=== PATIENT | female | born 1935 | race Caucasian/White ===

== ENCOUNTER 2019-06-19 08:49 | Outpatient (CLI) | payer MEDICARE, OTHER ==
--- NOTE | 2019-06-19 09:03 | RAD ---
EXAM: Chest PA and lateral: HISTORY: Dyspnea COMPARISON: None FINDINGS: Heart: Normal cardiac silhouette Aorta: Unremarkable Pulmonary vessels: Normal Costophrenic angles: Atherosclerosis of the aortic knob Lungs: No consolidation or masses. Pneumothorax: No pneumothorax Osseous structures: No osseous abnormalities IMPRESSION: No acute cardiopulmonary process.
== END 2019-06-19 08:50 | disposition home or self-care (01) ==
LOC: RAD 08:49
PROVIDERS: ATTEND Internal Medicine Critical Care Medicine
DX: R06.00 Dyspnea, unspecified (principal)
CPT/HCPCS: 71046

== ENCOUNTER 2019-07-17 10:50 | Outpatient (CLI) | payer MEDICARE, OTHER ==
--- NOTE | 2019-07-17 11:34 | CT ---
CT CHEST WITHOUT CONTRAST CLINICAL INDICATION: Pulmonary nodule (RA nodules). COMPARISON: None FINDINGS: Aorta: Vascular calcifications are seen in the thoracic aorta and involving the origin of the great v essels. Vascular calcifications are also seen in the coronary arteries. Lungs: Scattered peripheral interstitial densities are seen throughout the lungs bilaterally likely r eflective of mild chronic lung changes. Mild prominence of the bronchioles bilaterally with mild bronchiectasis seen in the medial aspect of the right middle lobe with adjacent parenchymal density. Approximately 5 mm noncalcified pulmonary nodule is seen in the right lower lobe (image 101, series 3 ) with a small 4 millimeter pulmonary nodule in the lateral aspect right middle lobe (image 99, series 3). Tiny less than 4 mm pleural-based nodular density is seen in the lateral aspect of the beau gula. No additional pulmonary nodule or mass is seen. No pleural effusion is identified. Mediastinum: Lack of intravenous contrast limits evaluation for lymphadenopathy, but no definite enla rged lymph nodes are seen. Thyroid gland: Grossly normal nonenhanced CT appearance. Osseous structures: No suspicious lytic or sclerotic osseous lesions are identified. Chest wall: No abnormality visualized. Upper abdomen: There is a small hiatal hernia. There is diminished attenuation of portions of the liver suggesting fatty infiltration. Vascular calc ifications are seen in the abdominal aorta. IMPRESSION: 1. Small less than 6 mm pulmonary nodules in the right lower and right middle lobes as described abov e. Follow-up CT scan thorax in 12 months is recommended. 2. Mild chronic interstitial lung changes including area of bronchiectasis and chronic lung changes i nvolving the medial aspect right middle lobe. 3. Small hiatal hernia. 4. Fatty infiltration of the liver. 5. Vascular calcifications.
== END 2019-07-17 10:51 | disposition home or self-care (01) ==
LOC: BICCT 10:50
PROVIDERS: ATTEND Internal Medicine Critical Care Medicine
DX: R91.8 Other nonspecific abnormal finding of lung field (principal); J47.9 Bronchiectasis, uncomplicated; K44.9 Diaphragmatic hernia without obstruction or gangrene; K76.0 Fatty (change of) liver, not elsewhere classified; I70.8 Atherosclerosis of other arteries
CPT/HCPCS: 71250

== ENCOUNTER 2020-07-28 14:29 | Outpatient (CLI) | payer MEDICARE, OTHER ==
--- NOTE | 2020-07-28 15:42 | CT ---
Exam: Chest CT without contrast COMPARISON: 07/17/2019 HISTORY: Follow-up pulmonary nodules. FINDINGS: Lower neck and axilla: No mass or lymphadenopathy Mediastinum: Limited evaluation by the lack of IV contrast. No mass, lymphadenopathy or hematoma Normal heart size. There are coronary calcifications Aorta has a overall normal caliber. Scattered atherosclerosis Subdiaphragmatic structures demonstrate areas of fatty infiltration and fatty sparing with regards to the hepatic parenchyma There are no lytic or blastic lesions in the osseous structures. Trachea and central bronchi are patent No pneumothorax or pleural effusion Dependent atelectatic changes in the lung parenchyma. Stable scar atelectasis in the lingula and midd le lobe. Right lung nodules: Stable 0.4 cm nodule in the middle lobe Stable 0.5 cm solid nodule in the right lower lobe. Left lung nodules: There are no suspicious nodules in the left lung IMPRESSION: Stable 0.5 cm solid nodule in the right lower lobe and stable 0.4 cm solid nodule in the middle lobe. Transcribed Date/Time: 07/28/2020 4:51 PM
== END 2020-07-28 14:30 | disposition home or self-care (01) ==
LOC: BICCT 14:29
PROVIDERS: ATTEND Internal Medicine Critical Care Medicine
DX: R91.8 Other nonspecific abnormal finding of lung field (principal)
CPT/HCPCS: 71250

== ENCOUNTER 2021-05-28 12:06 | Emergency (ER) | payer MEDICARE, OTHER ==
[2021-05-28] MEDS ORDERED: Bacitracin 1 PK ONE (13:11)
[2021-05-28] MEDS ORDERED: Boostrix 0.5 ML (Tdap) VIAL ONE (13:11)
== END 2021-05-28 15:15 | disposition home or self-care (01) ==
LOC: ERS 12:06
DX: S01.81XA Laceration without foreign body of other part of head, initial encounter (principal); S63.92XA Sprain of unspecified part of left wrist and hand, initial encounter; Z23 Encounter for immunization; W01.0XXA Fall on same level from slipping, tripping and stumbling without subsequent striking against object, initial encounter; M19.90 Unspecified osteoarthritis, unspecified site; M06.9 Rheumatoid arthritis, unspecified
CPT/HCPCS: 70450; 90471; 90715

== ENCOUNTER 2021-07-27 09:50 | Outpatient (CLI) | payer MEDICARE, OTHER | END 2021-07-27 09:51 | disposition home or self-care (01) | LOC: CT 09:50 | PROVIDERS: ATTEND Internal Medicine Critical Care Medicine | DX: R91.8 Other nonspecific abnormal finding of lung field (principal) | CPT/HCPCS: 71250 ==

== ENCOUNTER 2022-02-26 15:15 | Emergency (ER) | payer MEDICARE, OTHER | END 2022-02-26 17:18 | disposition home or self-care (01) | LOC: ERS 15:15 | DX: S00.01XA Abrasion of scalp, initial encounter (principal); W19.XXXA Unspecified fall, initial encounter | CPT/HCPCS: 70450; 72125 ==

== ENCOUNTER 2023-02-06 13:46 | Inpatient (IN) | payer MEDICARE, OTHER ==
[2023-02-06] MEDS ORDERED: Morphine 4 MG/ML VIAL ONE ×2 (14:54→17:16)
[2023-02-06] MEDS ORDERED: Ondansetron ODT 4 MG TAB PO PRN (17:31)
[2023-02-06] MEDS ORDERED: Ondansetron PF 4 MG/2 ML Vial IVP PRN (17:31)
[2023-02-06] MEDS ORDERED: Morphine 2 MG/ML VIAL SLOW IVP PRN (17:31)
[2023-02-06] MEDS ORDERED: traMADol HCl 50 MG TAB PO PRN (17:31)
[2023-02-06] MEDS ORDERED: hydrALAZINE 20 MG/ML VIAL SLOW IVP PRN (17:31)
[2023-02-06] MEDS ORDERED: TETANUS, DIPHTHERIA TOX,ADULT (TDVAX) 0.5 ML VIAL IM ONE (17:31)
[2023-02-06] MEDS ORDERED: Ketorolac Tromethamine 30 MG/ML VIAL IVP SCH (20:00)
[2023-02-06] MEDS ORDERED: Acetaminophen 500 MG TAB PO SCH (20:00)
[2023-02-06] MEDS: Gabapentin 100 MG CAP PO SCH (21:43)
[2023-02-06] MEDS: Famotidine 20 MG TAB PO SCH (21:45)
[2023-02-06 23:55] VITALS: BMI 38.4
[2023-02-07 06:35] LABS: #Eosinphils 0.2 thou/uL (0.0-0.7); #Monocytes 0.4 thou/uL (0.11-0.59); #Neutrophils 4.2 thou/uL (1.40-6.50); %Basophils 0.3 % (0.0-1.0); %Eosinophils 2.5 % (0.0-10.0); %Lymphocytes 23.9 % (21.0-51.0); %Monocytes 6.4 % (0.0-10.0); %Neutrophils 66.4 % (42.0-75.0); Hemoglobin 12.8 g/dL (12.0-16.0); Mean Corpuscular HGB CONC 32.8 g/dL (32.0-36.0); Mean Corpuscular Hemoglobin 30.7 pg (27.0-31.0); Mean Corpuscular Volume 93.5 fl (78.0-98.0); Mean Platelet Volume 10.5 fL (7.4-10.4); Platelet Count 139 10x3/uL (130-400); RBC Distribution Width 12.1 % (11.5-14.5); Red Blood Cell (RBC) Count 4.17 mill/uL (4.20-5.40); White Blood Cell (WBC) Count 6.4 10x3/uL (4.8-10.8)
[2023-02-07 06:59] LABS: Anion Gap 11 mmol/L (10-20); BUN (Urea Nitrogen) 17 mg/dL (9.8-20.1); Calc. Creatinine Clearance 75 mL/min (70-130); Carbon Dioxide 28 mmol/L (23-31); Chloride 102 mmol/L (98-107); Estimated GFR 69; Glucose 77 mg/dL (83-110); Potassium 3.7 mmol/L (3.5-5.1); Sodium 137 mmol/L (136-145)
[2023-02-07] MEDS: Polyethylene Glycol 3350 17 GM Packet PO SCH (10:00)
[2023-02-07] MEDS: Famotidine 20 MG TAB PO SCH ×2 (10:00→20:48)
[2023-02-07] MEDS: Gabapentin 100 MG CAP PO SCH ×3 (10:00→20:47)
[2023-02-07] MEDS: Acetaminophen 500 MG TAB PO SCH ×4 (10:00→20:48)
[2023-02-07] MEDS: traMADol HCl 50 MG TAB PO SCH ×3 (12:53→22:18)
[2023-02-07] MEDS: Senokot 8.6 MG TAB PO SCH (20:48)
[2023-02-08] MEDS: traMADol HCl 50 MG TAB PO SCH ×4 (05:17→22:42)
[2023-02-08] MEDS: Polyethylene Glycol 3350 17 GM Packet PO SCH (09:12)
[2023-02-08] MEDS: Acetaminophen 500 MG TAB PO SCH ×4 (09:12→20:06)
[2023-02-08] MEDS: Gabapentin 100 MG CAP PO SCH ×3 (09:14→20:06)
[2023-02-08] MEDS: Senokot 8.6 MG TAB PO SCH ×2 (09:14→20:06)
[2023-02-08] MEDS: Famotidine 20 MG TAB PO SCH ×2 (09:23→20:06)
[2023-02-08] MEDS: Cyclobenzaprine 10 MG TAB PO PRN ×2 (16:20→20:06)
[2023-02-09] MEDS: traMADol HCl 50 MG TAB PO SCH ×4 (05:19→23:32)
[2023-02-09] MEDS ORDERED: Ibuprofen 200 MG TAB PO SCH (09:00)
[2023-02-09] MEDS: Famotidine 20 MG TAB PO SCH ×2 (09:16→20:28)
[2023-02-09] MEDS: Senokot 8.6 MG TAB PO SCH ×2 (09:16→20:29)
[2023-02-09] MEDS: Gabapentin 100 MG CAP PO SCH ×3 (09:16→20:29)
[2023-02-09] MEDS: Acetaminophen 500 MG TAB PO SCH ×4 (09:17→20:27)
[2023-02-09] MEDS: Polyethylene Glycol 3350 17 GM Packet PO SCH (09:21)
[2023-02-10] MEDS: traMADol HCl 50 MG TAB PO SCH ×3 (05:59→18:16)
[2023-02-10] MEDS: Acetaminophen 500 MG TAB PO SCH ×4 (09:38→21:24)
[2023-02-10] MEDS: Polyethylene Glycol 3350 17 GM Packet PO SCH (09:39)
[2023-02-10] MEDS: Senokot 8.6 MG TAB PO SCH ×2 (09:39→21:23)
[2023-02-10] MEDS: Famotidine 20 MG TAB PO SCH ×2 (09:39→21:23)
[2023-02-10] MEDS: Gabapentin 100 MG CAP PO SCH ×3 (09:39→21:23)
[2023-02-11] MEDS: traMADol HCl 50 MG TAB PO SCH ×4 (00:47→17:40)
[2023-02-11] MEDS: Senokot 8.6 MG TAB PO SCH ×2 (08:38→20:11)
[2023-02-11] MEDS: Polyethylene Glycol 3350 17 GM Packet PO SCH (08:38)
[2023-02-11] MEDS: Gabapentin 100 MG CAP PO SCH ×3 (08:38→20:10)
[2023-02-11] MEDS: Acetaminophen 500 MG TAB PO SCH ×4 (08:38→20:09)
[2023-02-11] MEDS: Famotidine 20 MG TAB PO SCH ×2 (08:38→20:11)
[2023-02-12] MEDS: traMADol HCl 50 MG TAB PO SCH ×5 (00:35→23:45)
[2023-02-12] MEDS: Cyclobenzaprine 10 MG TAB PO PRN (00:38)
[2023-02-12] MEDS: Polyethylene Glycol 3350 17 GM Packet PO SCH (09:27)
[2023-02-12] MEDS: Gabapentin 100 MG CAP PO SCH ×3 (09:27→20:33)
[2023-02-12] MEDS: Acetaminophen 500 MG TAB PO SCH ×4 (09:27→20:34)
[2023-02-12] MEDS: Senokot 8.6 MG TAB PO SCH ×2 (09:27→20:35)
[2023-02-12] MEDS: Famotidine 20 MG TAB PO SCH ×2 (09:27→20:34)
[2023-02-12] MEDS ORDERED: ADMIXTURE FEE SC SCH (12:45)
[2023-02-12] MEDS ORDERED: NEOSTIGMINE SC SCH (12:45)
[2023-02-12] MEDS: NEOSTIGMINE SC SCH ×2 (14:27→18:01)
[2023-02-12] MEDS: ADMIXTURE FEE SC SCH ×2 (14:27→18:01)
[2023-02-13] MEDS: NEOSTIGMINE SC SCH ×3 (00:17→12:22)
[2023-02-13] MEDS: ADMIXTURE FEE SC SCH ×3 (00:17→12:22)
[2023-02-13] MEDS: traMADol HCl 50 MG TAB PO SCH ×3 (06:42→17:33)
[2023-02-13] MEDS ORDERED: Bisacodyl 10 MG SUPP PR PRN (07:45)
[2023-02-13] MEDS: Senokot 8.6 MG TAB PO SCH ×2 (08:58→20:37)
[2023-02-13] MEDS: Acetaminophen 500 MG TAB PO SCH ×4 (08:58→20:38)
[2023-02-13] MEDS: Polyethylene Glycol 3350 17 GM Packet PO SCH (08:59)
[2023-02-13] MEDS: Gabapentin 100 MG CAP PO SCH ×3 (08:59→20:37)
[2023-02-13] MEDS: Famotidine 20 MG TAB PO SCH ×2 (08:59→20:38)
[2023-02-13] MEDS: Bisacodyl 10 MG SUPP PR SCH (09:16)
[2023-02-14] MEDS: traMADol HCl 50 MG TAB PO SCH ×3 (00:46→12:22)
[2023-02-14] MEDS: Acetaminophen 500 MG TAB PO SCH ×2 (08:55→12:23)
[2023-02-14] MEDS: Famotidine 20 MG TAB PO SCH (08:56)
[2023-02-14] MEDS: Gabapentin 100 MG CAP PO SCH ×2 (08:56→14:15)
[2023-02-14] MEDS: Senokot 8.6 MG TAB PO SCH (08:56)
[2023-02-14] MEDS: Polyethylene Glycol 3350 17 GM Packet PO SCH (08:56)
[2023-02-14] MEDS: Bisacodyl 10 MG SUPP PR SCH (08:57)
[2023-02-14 15:30] VITALS: BP 152/79; TEMP 97.8
== END 2023-02-14 16:45 | DRG 552 ==
LOC: ERS 13:46 → OBSVTOIN 17:36 → SJJU 17:36
PROVIDERS: ADMIT Specialist; ATTEND Specialist
PROC: 0T9B70Z Drainage of Bladder with Drainage Device, Via Natural or Artificial Opening (ICD-10-PCS; principal; 2023-02-10)
DX: S22.089A Unspecified fracture of T11-T12 vertebra, initial encounter for closed fracture (principal); M06.9 Rheumatoid arthritis, unspecified; M19.90 Unspecified osteoarthritis, unspecified site; F41.9 Anxiety disorder, unspecified; H35.30 Unspecified macular degeneration; H40.9 Unspecified glaucoma; H54.7 Unspecified visual loss; W19.XXXA Unspecified fall, initial encounter; M81.0 Age-related osteoporosis without current pathological fracture; R33.9 Retention of urine, unspecified; K59.00 Constipation, unspecified; Z90.49 Acquired absence of other specified parts of digestive tract; Z90.710 Acquired absence of both cervix and uterus; Z98.890 Other specified postprocedural states; Z88.1 Allergy status to other antibiotic agents; Z88.2 Allergy status to sulfonamides; Z88.8 Allergy status to other drugs, medicaments and biological substances; Y92.9 Unspecified place or not applicable
CPT/HCPCS: 36415; 70450; 72125; 72128; 72131; 74018; 80048; 85025; 90714; G0390; J1650; J1885; J2270; J2272; J2710

== ENCOUNTER 2023-02-22 15:37 | Outpatient (CLI) | payer MEDICARE, OTHER | END 2023-02-22 15:38 | disposition home or self-care (01) | LOC: BICRAD 15:37 | PROVIDERS: ATTEND Surgery | DX: S22.081A Stable burst fracture of T11-T12 vertebra, initial encounter for closed fracture (principal) | CPT/HCPCS: 72100 ==

== ENCOUNTER 2023-03-22 10:40 | Outpatient (CLI) | payer MEDICARE | END 2023-03-22 10:41 | disposition home or self-care (01) | LOC: RAD 10:40 | PROVIDERS: ATTEND Internal Medicine | DX: S22.081D Stable burst fracture of T11-T12 vertebra, subsequent encounter for fracture with routine healing (principal) | CPT/HCPCS: 72100 ==

== ENCOUNTER 2023-04-09 06:17 | Emergency (ER) | payer MEDICARE ==
[2023-04-09 07:37] LABS: #Eosinphils 0.1 thou/uL (0.0-0.7); #Monocytes 0.5 thou/uL (0.11-0.59); #Neutrophils 3.2 thou/uL (1.40-6.50); %Basophils 0.7 % (0.0-1.0); %Eosinophils 2.6 % (0.0-10.0); %Lymphocytes 27.3 % (21.0-51.0); %Neutrophils 59.7 % (42.0-75.0); Hematocrit 40.6 % (36.0-47.0); Hemoglobin 13.5 g/dL (12.0-16.0); Mean Corpuscular HGB CONC 33.3 g/dL (32.0-36.0); Mean Corpuscular Hemoglobin 30.6 pg (27.0-31.0); Mean Corpuscular Volume 92.1 fl (78.0-98.0); Mean Platelet Volume 10.6 fL (7.4-10.4); Platelet Count 182 10x3/uL (130-400); RBC Distribution Width 12.4 % (11.5-14.5); Red Blood Cell (RBC) Count 4.41 mill/uL (4.20-5.40); White Blood Cell (WBC) Count 5.3 10x3/uL (4.8-10.8)
[2023-04-09] MEDS ORDERED: Lidocaine 1% MPF 2 ML VIAL ONE (07:46)
[2023-04-09] MEDS ORDERED: Boostrix 0.5 ML (Tdap) VIAL (>/=7 yrs of age) ONE (07:46)
[2023-04-09] MEDS ORDERED: fentaNYL 50 mcg/mL 1 mL Vial ONE (07:46)
[2023-04-09 07:50] LABS: ALT (SGPT) 34 U/L (8-55); AST (SGOT) 22 U/L (5-34); Albumin 4.2 g/dL (3.4-4.8); Alcohol Less than 10.0 mg/dL (Less than 10); Alkaline Phosphatase 103 U/L (40-110); Anion Gap 12 mmol/L (10-20); BUN (Urea Nitrogen) 15 mg/dL (9.8-20.1); Bilirubin, Total 0.4 mg/dL (0.2-1.2); Calc. Creatinine Clearance 0 mL/min (70-130); Calcium 9.3 mg/dL (7.8-10.44); Carbon Dioxide 31 mmol/L (23-31); Chloride 104 mmol/L (98-107); Estimated GFR 74; Globulin 2.4 g/dL (2.4-3.5); Glucose 94 mg/dL (83-110); Lipase Less than 4 U/L (8-78); Protein, Total 6.6 g/dL (5.8-8.1); Sodium 143 mmol/L (136-145)
[2023-04-09 07:52] LABS: PTT 24.4 sec (22.9-36.1); Prothrombin Time 13.4 sec (12.0-14.7)
== END 2023-04-09 11:09 | disposition home or self-care (01) ==
LOC: ERS 06:17
DX: S01.01XA Laceration without foreign body of scalp, initial encounter (principal); M54.9 Dorsalgia, unspecified; R51.9 Headache, unspecified; W18.30XA Fall on same level, unspecified, initial encounter
CPT/HCPCS: 70450; 71045; 71250; 72125; 74177; 80053; 80307; 83605; 83690; 85025; 85610; 85730; 90715; 93005; 94760; J3010; 12002; 90471; 96374

== ENCOUNTER 2023-07-11 14:31 | Outpatient (CLI) | payer MEDICARE | END 2023-07-11 14:32 | disposition home or self-care (01) | LOC: RAD 14:31 | PROVIDERS: ATTEND Internal Medicine Critical Care Medicine | DX: R06.00 Dyspnea, unspecified (principal) | CPT/HCPCS: 71046 ==

== ENCOUNTER 2024-06-20 13:33 | Outpatient (CLI) | payer MEDICARE | END 2024-06-20 13:34 | disposition home or self-care (01) | LOC: BICMAMMO 13:33 | PROVIDERS: ATTEND Internal Medicine | DX: Z12.31 Encounter for screening mammogram for malignant neoplasm of breast (principal); Z78.0 Asymptomatic menopausal state; M85.89 Other specified disorders of bone density and structure, multiple sites | CPT/HCPCS: 77063; 77067; 77080 ==

== ENCOUNTER 2024-07-11 09:31 | Outpatient (CLI) | payer MEDICARE | END 2024-07-11 09:32 | disposition home or self-care (01) | LOC: RAD 09:31 | PROVIDERS: ATTEND Internal Medicine Critical Care Medicine | DX: R06.00 Dyspnea, unspecified (principal) | CPT/HCPCS: 71046 ==